=== PATIENT | male | born 1995 ===

== ENCOUNTER 2023-04-10 14:04 | Emergency (ER) | payer OTHER, SELFPAY ==
[2023-04-10 15:01] VITALS: BP 122/64; PULSE 64; RESP 18; TEMP 36.6; O2SAT 99; BMI 24.6
--- NOTE | 2023-04-10 15:06 | ED_ITS ---
HPI - General Adult General Chief complaint: General Medical Stated complaint: took drugs/ Anxious Time Seen by Provider: 04/10/23 16:52 Source: patient Mode of arrival: ambulatory Limitations: no limitations History of Present Illness HPI narrative: 27 yo male with history of opioid use disorder on methadone maintenance who presents to the ER for evaluation of body aches, chills, not feeling well after not having methadone for 3 days. He states his girlfriend throughout his take home bottles because she wanted him to get sober. He states for the last couple of days he has not used any heroin but he did smoke some crack cocaine. He feels like he is withdrawing from opiates. He goes to clinic in [place] where he gets take-home bottles. He has a DH in letter with him stating he was given take all bottles of 125 mg to last him through today. complaint: Opiate withdrawal Onset (ago): day(s) Relieving factors: none Exacerbating factors: none Associated symptoms: diaphoresis, fever/chills, headaches, loss of appetite and malaise Treatments prior to arrival: none Related Data Allergies Allergy/AdvReac Type Severity Reaction Status Date / Time No Known Allergies Allergy Verified 04/10/23 15:05 Review of Systems Review of Systems: Yes all other systems are reviewed and are negative [facility] Social History Social History Advance Directives: No Advance Directives Information Provided: No Physical Exam ED Vital Signs: Vital Signs - 24 hr 04/10/23 15:01 Temperature 98 F Pulse Rate 64 Respiratory Rate 18 Blood Pressure 122/64 Pulse Oximetry 99 Oxygen Delivery Method Room Air BMI result Body Mass Index 24.6 Appearance: Alert. Oriented X3. No acute distress. not diaphoretic Head: normocephalic, atraumatic. Eyes: Pupils equal, round and reactive to light. ENT: Pharynx normal. No tonsillar swelling or exudate. Neck: Normal inspection. Neck supple. CVS: Normal heart rate and rhythm. Pulses normal. Respiratory: No respiratory distress. Breath sounds normal. Abdomen: Soft and nontender. +BS x4 Skin: Skin warm and dry. Normal skin color. Normal skin turgor. No rashes. Extremities: No lower extremity edema. No joint swelling. Neuro/psych: Oriented X 3. No motor deficit. No sensory deficit. CN II-XII intact. Normal speech and cognition. Course Course Course Narrative: RME: 27 yold male presents to the ED for seeking detox from drugs. last took met hadone for 3 days. labs EKG ordered. Medications Administered Discontinued Medications Generic Name Dose Route Start Last Admin Trade Name Fernie PRN Reason Stop Dose Admin Methadone HCl 40 mg 04/10/23 17:32 04/10/23 17:59 Methadone Hcl 20 Mg/2 Ml Oral.Conc PO 04/10/23 17:33 40 mg ONCE ONE Administration Medical Decision Making Medical Decision Making [facility] Narrative: 27 yo male with history of opioid use disorder on methadone 125 mg per day who presents to the ER for evaluation of opioid withdrawal symptoms. He states he has not taken his methadone in the last 3 days because his girlfriend brought the bottles, she want him to get sober. He appears comfortable on arrival to the ER. His vital signs are stable. 40 mg of methadone were administered in the emergency department. He will follow up with his methadone clinic tomorrow. Patient has not been using opiates. He does not qualify for detox. He will be discharged with planned follow-up with his clinic tomorrow. Patient agrees with plan Differential Diagnosis Differential Diagnoses: The differential diagnosis associated with the presentation includes covid, flu, opioid withdrawal, polysubstance abuse Lab Data [facility] Lab Attestation statement: I reviewed the patient's lab results. Normal chemistry 04/10/23 15:22 Labs: Lab Results 04/10/23 04/10/23 04/10/23 Range/Units 15:22 15:22 18:04 Sodium 142 (135-145) mmol/L Potassium 3.8 (3.3-5.1) mmol/L Chloride 106 (96-108) mmol/L Carbon Dioxide 28 (22-29) mmol/L Anion Gap 12 (12-20) BUN 12 (9-16) mg/dL Creatinine 0.92 (0.5-1.4) mg/dL Estim Creat Clear Calc 118.7 Estimated GFR > 60 Random Glucose 99 (60-115) mg/dL Calcium 10.4 H (8.4-10.2) mg/dL Total Bilirubin 0.4 (0.0-1.0) mg/dL AST 24 (5-37) U/L ALT 18 (0-40) U/L Alkaline Phosphatase 99 (39-117) U/L Total Protein 7.9 (6.5-8.0) g/dL Albumin 4.8 (3.5-5.0) g/dL Urine Opiates Screen Not Detected (Not Detect) Urine Fentanyl Screen Not Detected (Not Detect) Ur Barbiturates Screen Not Detected (Not Detect) Ur Phencyclidine Scrn Not Detected (Not Detect) Ur Amphetamines Screen Not Detected (Not Detect) U Benzodiazepines Scrn Not Detected (Not Detect) Urine Cocaine Screen POSITIVE H (Not Detect) U Marijuana (THC) Screen POSITIVE H (Not Detect) Ethyl Alcohol < 10 mg/dL COVID-19 ([facility]) Negative (Negative) COVID-19 Clin Com See Note Independent Historian Clinical information obtained from an independent historian. History obtained from or confirmed by: Parent External Record Review External record reviewed: Office record and Outpatient record Prescription Management I considered prescription management with: Other (Methadone) Chronic Conditions Patient?s care impacted by: Other (Opioid use disorder) Social Determinants Patient?s care significantly limited by Social Determinants of Health including: Problems related to primary support group and Other Social Determinant of Health Critical Care Time Critical Care Time Critical Care Time: No Discharge Plan Discharge Clinical Impression: Opioid use disorder Patient Disposition: Home, Self-Care Instructions: Opioid Use Disorder (ED) Additional Instructions: you tested negative for COVID today you were given 40 mg of methadone today follow up with your clinic tomorrow to resume your usual dose your drug toxicology was positive for cocaine and marijuana do no use illicit drugs, they can kill you If you develop new or worsening symptoms call 911 or come back to the ER for further evaluation. Interventions: ED Discharge Assessment Last Done: 04/10/23 18:57 Discharge Date/Time: 04/10/23 18:57
--- NOTE | 2023-04-10 18:11 | PC.NURSE ---
pt reports his gf threw his methadone away stating he needs to be drug free. he states he last dosed on 04/06, he also states his grandfather has covid. pt was tested he has a letter from [facility] about dosing and he was given take home doses
== END 2023-04-10 18:57 | disposition home or self-care (01) ==
PROVIDERS: Emergency Provider Internal Medicine
DX: F11.23 Opioid dependence with withdrawal (principal); R94.31 Abnormal electrocardiogram [ECG] [EKG]; F41.1 Generalized anxiety disorder; F43.0 Acute stress reaction; Z20.822 Contact with and (suspected) exposure to COVID-19; Z20.828 Contact with and (suspected) exposure to other viral communicable diseases; Z79.899 Other long term (current) drug therapy
CPT/HCPCS: 36415; 80053; 80307; 87635; 93000; 99283